=== PATIENT | female | born 1990 | race Caucasian/White ===

== ENCOUNTER 2016-04-25 10:55 | Emergency (ER) | payer OTHER ==
[2016-04-25] MEDS ORDERED: ACETAMINOPHEN 325 MG TAB As Ordered ONE (11:16)
[2016-04-25 11:41] LABS: BASO % 0.3 % (0.0-1.0); EOS % 0.2 % (0.0-3.0); LARGE UNSTAINED CELL # 0.1 K/mm3 (0.0-0.4); LARGE UNSTAINED CELL % 1.8 % (0.0-4.0); LYMPH # 0.2 K/mm3 (1.5-6.5); LYMPH % 5.4 % (24.0-44.0); MEAN CORPUSCULAR HEMOGLOBIN 30.3 pg (27.0-33.0); MEAN CORPUSCULAR HGB CONC 34.5 g/dl (32.0-36.5); MEAN CORPUSCULAR VOLUME 87.9 fl (80.0-96.0); MONO # 0.3 K/mm3 (0.0-0.8); MONO % 6.5 % (0.0-5.0); NEUTROPHILS # 3.8 K/mm3 (1.8-7.7); NEUTROPHILS % 85.7 % (36.0-66.0); PLATELET COUNT, AUTOMATED 244 k/mm3 (150-450); RED CELL DISTRIBUTION WIDTH 12.4 % (11.5-14.5); WHITE BLOOD COUNT 4.4 K/mm3 (4.0-10.0)
[2016-04-25 11:54] LABS: ANION GAP 9 MEQ/L (8-16); BLOOD UREA NITROGEN 12 MG/DL (7-18); CALCIUM LEVEL 9.3 MG/DL (8.5-10.1); CARBON DIOXIDE LEVEL 27 MEQ/L (21-32); CHLORIDE LEVEL 102 MEQ/L (98-107); CREATININE FOR GFR 0.94 MG/DL (0.55-1.02); GLOMERULAR FILTRATION RATE > 60.0 (>60); GLUCOSE, FASTING 93 MG/DL (70-105); SODIUM LEVEL 138 MEQ/L (136-145)
[2016-04-25] MEDS ORDERED: ISOVUE-370 76% 100ML VIAL (Q9967) As Ordered ONE (12:14)
--- NOTE | 2016-04-25 13:27 | EDDOCDS ---
Physician Documentation [facility] Name: Elisha Saucedo Age: 25 yrs Sex: Female : 1990 Arrival Date: 04/25/2016 Time: 10:55 Bed I2 / M2 Private MD: NO PRIMARY PHYSICIAN, . Disposition: 04/25/16 13:05 Discharged to Home/Self Care. Impression: Chest pain, unspecified, Viral infection, unspecified. - Condition is Stable. - Discharge Instructions: Nonspecific Chest Pain, Viral Infections. - Medication Reconciliation, Work Release Form - 3 day form. - Follow up: Rhea Perdomo MD; When: Call to arrange an appointment; Reason: Wound/Symptom Recheck, Recheck today's complaints, Worsening of conditions, Continuance of care, To establish care. - Problem is new. - Symptoms are unchanged. Historical: - Allergies: amoxicillin; Ceclor; Erythromycin; - Home Meds: 1. BCP 1 tab once daily - PMHx: none; - PSHx: none; - Social history: Smoking status: Patient states was never smoker of tobacco. No barriers to communication noted, The patient speaks fluent Italian, Speaks appropriately for age. - : The pt / caregiver states he / she is not on anticoagulants. Home medication list is obtained from the patient. - Exposure Risk Screening:: None identified. 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 5 in. (165.10 cm); Pain 3/10; 12:32 BP 121 / 60; Pulse 92; Resp 18; Temp 100.3(O); Pulse Ox 97% on R/A; Pain 0/10; jml1 13:15 BP 118 / 55; Pulse 80; Resp 20; Temp 98; Pain 1/10; mk4 10:57 Body Mass Index 24.96 (68.04 kg, 165.10 cm) dem1 MDM: 11:12 UCG by Nursing ordered. cc10 11:12 Acetaminophen Tablet 650 mg PO once ordered. cc10 11:12 Basic Metabolic Profile Ordered. EDMS 11:12 CBC with Diff Ordered. EDMS 11:12 D-Dimer Quant Ordered. EDMS 11:14 Chest, 2 View (pa\E\lat) Ordered. EDMS 11:27 Financial registration complete. gb 11:56 CBC with Diff Reviewed. cc10 11:56 D-Dimer Quant Reviewed. cc10 11:56 Basic Metabolic Profile Reviewed. cc10 12:09 IV Saline Lock ordered. cc10 12:09 Vital Signs ordered. cc10 12:09 CT Chest Angio R/O PE Ordered. EDMS 12:17 [facility] Payment Agreement was scanned into [employer] and attached to record. Point of Care Testing: Urine : 11:25 hCG Reading: Negative; Control Reading: Positive; rs3 Ranges: Administered Medications: 11:24 Drug: Acetaminophen 650 mg [acetaminophen 325 mg tablet (2 tabs)] Route: PO; rs3 Signatures: Dispatcher [employer] EDCA Katie Martinez, Reg Reg Maynor Eckert RN RN mlb1 Dolores Valdez RN RN mk4 Salinas Dorman, PA-C PA-C cc10 Milla Hahn RN rs3 The chart was reviewed and I authenticate all verbal orders and agree with the evaluation and treatment provided.Attachments: 12:17 [facility] Payment Agreement gb MTDD
--- NOTE | 2016-04-25 13:27 | EDDOCDS ---
Nurse's Notes [facility] Name: Elisha Saucedo Age: 25 yrs Sex: Female : 1990 Arrival Date: 04/25/2016 Time: 10:55 Bed I2 / M2 Private MD: NO PRIMARY PHYSICIAN, . Diagnosis: Chest pain, unspecified;Viral infection, unspecified Presentation: 04/25 10:58 Presenting complaint: Patient states: Chest pressure radiating to back intermittent mlb1 since 1900 last night seen at [facility] this am. Aspirin was not taken prior to arrival. Adult Sepsis Screening: The patient does not have new or worsening altered mentation. Patient's respiratory rate is less than 22. Systolic blood pressure is greater than 100. Patient has a qSOFA score of 0- Negative Sepsis Screen. Suicide/Homicide risk assessment- the patient denies having any suicidal and/or homicidal ideations and does not present with any other emotional, behavioral or mental health complaints. Status: Patient is not a donor services technician or dependent. Transition of care: Patient was received from [facility]. 10:58 Acuity: JIMMY Level 3 mlb1 10:58 Method Of Arrival: Walkin/Carried/Asstd mlb1 Triage Assessment: 11:01 General: Appears in no apparent distress, Behavior is appropriate for age, cooperative. mlb1 Pain: Location: chest Pain currently is 3 out of 10 on a pain scale. Pain radiates to thoracic area. HIV screening NA for this visit Offered previously. 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 BCP 1 tab once daily - PMHx: none; - PSHx: none; - Social history: Smoking status: Patient states was never smoker of tobacco. No barriers to communication noted, The patient speaks fluent Martiniquais, Speaks appropriately for age. - : The pt / caregiver states he / she is not on anticoagulants. Home medication list is obtained from the patient. - Exposure Risk Screening:: None identified. Screenin:22 Screening information is obtained from the patient. Fall risk: No risks identified. ck1 Assistance ADL's: requires no assistance with activities of daily living. Abuse/DV Screen: The patient / caregiver reports he/she is: not in a situation that causes fear, pain or injury. Nutritional screening: No deficits noted. Advance Directives: Currently, there is no health care proxy. home support is adequate. Assessment: 11:21 General: Appears in no apparent distress, comfortable, Behavior is appropriate for age, ck1 cooperative. Pain: Location: chest Pain currently is 4 out of 10 on a pain scale. Quality of pain is described as pressure. Neurological: Level of Consciousness is awake, alert, obeys commands, Oriented to person, place, time. Cardiovascular: Rhythm is regular. Respiratory: Respiratory effort is unlabored, Respiratory pattern is regular, symmetrical. Derm: Skin is intact, is healthy with good turgor, Skin is pink, warm & dry. 12:20 General: Appears in no apparent distress. Neurological: Level of Consciousness is mk4 awake, alert, Oriented to person, place, time. Respiratory: Airway is patent Respiratory effort is even. 13:19 Reassessment: Patient denies pain at this time. General: Appears in no apparent mk4 distress, comfortable, Behavior is cooperative. Vital Signs: 10:57 BP 147 / 61; Pulse 107; Resp 18; Temp 99.7; Pulse Ox 99% on R/A; Weight 68.04 kg; dem1 Height 5 ft. 5 in. (165.10 cm); Pain 3/10; 12:32 BP 121 / 60; Pulse 92; Resp 18; Temp 100.3(O); Pulse Ox 97% on R/A; Pain 0/10; jml1 13:15 BP 118 / 55; Pulse 80; Resp 20; Temp 98; Pain 1/10; mk4 10:57 Body Mass Index 24.96 (68.04 kg, 165.10 cm) [facility] Vitals: 10:57 Log In Time: April 25, 2016 at 10:55. [facility] ED Course: 10:56 Patient visited by Charlie Orellana. dem1 10:56 Patient moved to Waiting dem1 10:57 NO PRIMARY PHYSICIAN, . is Private Physician. [facility] 10:58 Patient visited by Maynor Eckert, TASNEEM. b1 10:58 Patient moved to Pre RCE dem1 11:00 Triage Initiated mlb1 11:01 Patient visited by Maynor Eckert, TASNEEM. mlb1 11:01 Patient moved to Triage 2 mlb1 11:04 Salinas Dorman PA-C is PHCP. cc10 11:04 Rupa Quinones MD is Attending Physician. cc10 11:04 Patient visited by Salinas Dorman PA-C. cc10 11:04 Patient visited by Salinas Dorman PA-C. cc10 11:21 Basic Metabolic Profile Sent. ck1 11:21 CBC with Diff Sent. ck1 11:21 D-Dimer Quant Sent. ck1 11:22 Patient moved to TR1 rs3 11:22 The patient / caregiver is instructed regarding the plan of care and ED course. Cardiac ck1 monitoring not applicable on this patient. 11:35 Patient visited by Rachael Rodriguez RN. ck1 12:03 Patient moved to I2 / M2 ck1 12:17 Patient name changed from Elisha\S\\S\Lewis\S\ to Elisha\S\Jyoti\S\Lewis. EDMS 12:17 [facility] Payment Agreement was scanned into [employer] and attached to record. gb 12:18 Patient visited by Dolores Valdez RN. mk4 12:19 Inserted saline lock: 20 gauge in left antecubital area The patient tolerated the dls procedure well. 12:32 Patient visited by Bob Bertrand. jml1 13:04 Rhea Perdomo MD is Referral Physician. cc10 13:15 No procedures done that require assistance. mk4 Administered Medications: 11:24 Drug: Acetaminophen 650 mg [acetaminophen 325 mg tablet (2 tabs)] Route: PO; rs3 Point of Care Testing: Urine : 11:25 hCG Reading: Negative; Control Reading: Positive; rs3 Ranges: Order Results: Lab Order: Basic Metabolic Profile; SPEC'M 04/25/16 11:20 Test: GLUCOSE, FASTING; Value: 93; Range: 70-105; Units: MG/DL; Status: F Test: BLOOD UREA NITROGEN; Value: 12; Range: 7-18; Units: MG/DL; Status: F Test: CREATININE FOR GFR; Value: 0.94; Range: 0.55-1.02; Units: MG/DL; Status: F Test: GLOMERULAR FILTRATION RATE; Value: > 60.0; Range: >60; Status: F Test: SODIUM LEVEL; Value: 138; Range: 136-145; Units: MEQ/L; Status: F Test: POTASSIUM SERUM; Value: 4.0; Range: 3.5-5.1; Units: MEQ/L; Status: F Test: CHLORIDE LEVEL; Value: 102; Range: 98-107; Units: MEQ/L; Status: F Test: CARBON DIOXIDE LEVEL; Value: 27; Range: 21-32; Units: MEQ/L; Status: F Test: ANION GAP; Value: 9; Range: 8-16; Units: MEQ/L; Status: F Test: CALCIUM LEVEL; Value: 9.3; Range: 8.5-10.1; Units: MG/DL; Status: F Test Note: ; Units are mL/min/1.73 m2 Chronic Kidney Disease Staging per NKF: Stage I & II GFR >=60 Normal to Mildly Decreased Stage III GFR 30-59 Moderately Decreased Stage IV GFR 15-29 Severely Decreased Stage V GFR <15 Very Little GFR Left ESRD 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0-36.5; Units: g/dl; Status: F Test: RED CELL DISTRIBUTION WIDTH; Value: 12.4; Range: 11.5-14.5; Units: %; Status: F Test: PLATELET COUNT, AUTOMATED; Value: 244; Range: 150-450; Units: k/mm3; Status: F Test: NEUTROPHILS %; Value: 85.7; Range: 36.0-66.0; Abnormal: Above high normal; Units: %; Status: F Test: LYMPH %; Value: 5.4; Range: 24.0-44.0; Abnormal: Below low normal; Units: %; Status: F Test: MONO %; Value: 6.5; Range: 0.0-5.0; Abnormal: Above high normal; Units: %; Status: F Test: EOS %; Value: 0.2; Range: 0.0-3.0; Units: %; Status: F Test: BASO %; Value: 0.3; Range: 0.0-1.0; Units: %; Status: F Test: LARGE UNSTAINED CELL %; Value: 1.8; Range: 0.0-4.0; Units: %; Status: F Test: NEUTROPHILS #; Value: 3.8; Range: 1.8-7.7; Units: K/mm3; Status: F Test: LYMPH #; Value: 0.2; Range: 1.5-6.5; Abnormal: Below low normal; Units: K/mm3; Status: F Test: MONO #; Value: 0.3; Range: 0.0-0.8; Units: K/mm3; Status: F Test: EOS #; Value: 0.0; Range: 0.0-0.50; Units: K/mm3; Status: F Test: BASO #; Value: 0.0; Range: 0.0-0.2; Units: K/mm3; Status: F Test: LARGE UNSTAINED CELL #; Value: 0.1; Range: 0.0-0.4; Units: K/mm3; Status: F Lab Order: D-Dimer Quant; SPEC'M 04/25/16 11:20 Test: D-DIMER QUANT; Value: 526.5; Range: <500; Abnormal: Above high normal; Units: ng/ml; Status: F Outcome: 13:05 Discharge ordered by Provider. cc10 13:27 Patient left the ED. mk4 Signatures: Dispatcher [employer] EDKati Todd RN RN Katie Mora, Jorje Reg Maynor Hooks, RN RN mlb1 Rachael Rodriguez RN RN ck1 Milla HahnRN RN rs3 Bob Bertrandl1 Charlie Orellana Margaret RN RN mk4 Salinas Dorman, DAYANARA NICHOLE cc10 MTDD
--- NOTE | 2016-04-25 13:53 | REP ---
Chest PA and lateral: 04/25/2016. Clinical history: Cough. Findings. Lungs are well inflated. There are patchy bibasilar areas of atelectasis or early infiltrate without air bronchograms. There is no effusion. The heart, mediastinal and hilar contours are normal. Bones unremarkable. No free air under the diaphragm. Impression: 1. Patchy bibasilar atelectasis or infiltrates without air bronchograms. No effusion. Signed by Tru Canas MD 04/25/2016 07:37 P
--- NOTE | 2016-04-25 14:06 | REP ---
CT ANGIOGRAM CHEST: 04/25/2016. Clinical history: 25-year-old female with chest pain. Comparison: Chest x-ray today. Technique: Patient received a bolus of 100 mL as Isovue 370 scanning through the chest with coronal and sagittal MIP thick slab reformats. Findings: The lung treviño are clear. There is no infiltrate, effusion, nodule, atelectasis or mass. No pleural thickening, pleural plaques, apical scarring or pneumothorax. No pneumomediastinum. Heart not grossly enlarged. There is no aortic aneurysm or dissection. The main, right and left pulmonary arteries and the mediastinum are without filling defects. The lobar, segmental and subsegmental vessels identified were all unremarkable and without filling defect or vessel cutoff. No pathologic sized mediastinal or hilar adenopathy. No axillary or supraclavicular mass. The bone windows show the sternum, manubrium, clavicles, AC joints, glenohumeral joints, scapulae, ribs and thoracic spine without focal lesion or fracture. In the upper abdomen that portion of liver and spleen seen were normal for arterial phase imaging. No ascites. Adrenal glands normal. Upper poles of the kidneys intact. No hiatal hernia. Tail of the pancreas seen and unremarkable. Impression: 1. Normal CT angiogram of the chest. No evidence of pulmonary embolism, mediastinal or hilar adenopathy, pneumothorax, pneumomediastinum, fracture or focal bone lesion in the chest nor any other findings. The lungs were clear. No aortic aneurysm or dissection. No hiatal hernia. Signed by Tru Canas MD 04/25/2016 07:39 P
--- NOTE | 2016-04-27 14:28 | EDDOCDS ---
Physician Documentation [facility] Name: Elisha Saucedo Age: 25 yrs Sex: Female : 1990 Arrival Date: 04/25/2016 Time: 10:55 Bed I2 / M2 Private MD: NO PRIMARY PHYSICIAN, . Disposition: 04/25/16 13:05 Discharged to Home/Self Care. Impression: Chest pain, unspecified, Viral infection, unspecified. - Condition is Stable. - Discharge Instructions: Nonspecific Chest Pain, Viral Infections. - Medication Reconciliation, Work Release Form - 3 day form. - Follow up: Rhea Perdomo MD; When: Call to arrange an appointment; Reason: Wound/Symptom Recheck, Recheck today's complaints, Worsening of conditions, Continuance of care, To establish care. - Problem is new. - Symptoms are unchanged. Historical: - Allergies: amoxicillin; Ceclor; Erythromycin; - Home Meds: 1. BCP 1 tab once daily - PMHx: none; - PSHx: none; - Social history: Smoking status: Patient states was never smoker of tobacco. No barriers to communication noted, The patient speaks fluent Polish, Speaks appropriately for age. - : The pt / caregiver states he / she is not on anticoagulants. Home medication list is obtained from the patient. - Exposure Risk Screening:: None identified. 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 5 in. (165.10 cm); Pain 3/10; 12:32 BP 121 / 60; Pulse 92; Resp 18; Temp 100.3(O); Pulse Ox 97% on R/A; Pain 0/10; jml1 13:15 BP 118 / 55; Pulse 80; Resp 20; Temp 98; Pain 1/10; mk4 10:57 Body Mass Index 24.96 (68.04 kg, 165.10 cm) dem1 MDM: 11:12 UCG by Nursing ordered. cc10 11:12 Acetaminophen Tablet 650 mg PO once ordered. cc10 11:12 Basic Metabolic Profile Ordered. EDMS 11:12 CBC with Diff Ordered. EDMS 11:12 D-Dimer Quant Ordered. EDMS 11:14 Chest, 2 View (pa\E\lat) Ordered. EDMS 11:27 Financial registration complete. gb 11:56 CBC with Diff Reviewed. cc10 11:56 D-Dimer Quant Reviewed. cc10 11:56 Basic Metabolic Profile Reviewed. cc10 12:09 IV Saline Lock ordered. cc10 12:09 Vital Signs ordered. cc10 12:09 CT Chest Angio R/O PE Ordered. EDMS 12:17 [facility] Payment Agreement was scanned into [employer] and attached to record. gb 17:15 T-Sheet-- Draft Copy was scanned into [employer] and attached to record. klr Point of Care Testing: Urine : 11:25 hCG Reading: Negative; Control Reading: Positive; rs3 Ranges: Administered Medications: 11:24 Drug: Acetaminophen 650 mg [acetaminophen 325 mg tablet (2 tabs)] Route: PO; rs3 Signatures: Dispatcher [employer] EDPA Katie aMrtinez, Reg Reg Maynor Eckert RN RN mlb1 Dolores Valdez RN RN mk4 Salinas Dorman, PA-C PA-C cc10 Shannan Camacho klr Milla Hahn RN rs3 The chart was reviewed and I authenticate all verbal orders and agree with the evaluation and treatment provided.Attachments: 12:17 [facility] Payment Agreement gb 17:15 T-Sheet-- Draft Copy klr Chart Complete MTDD
--- NOTE | 2016-04-27 14:28 | EDDOCDS ---
Physician Documentation [facility] Name: Elisha Saucedo Age: 25 yrs Sex: Female : 1990 Arrival Date: 04/25/2016 Time: 10:55 Bed I2 / M2 Private MD: NO PRIMARY PHYSICIAN, . Disposition: 04/25/16 13:05 Discharged to Home/Self Care. Impression: Chest pain, unspecified, Viral infection, unspecified. - Condition is Stable. - Discharge Instructions: Nonspecific Chest Pain, Viral Infections. - Medication Reconciliation, Work Release Form - 3 day form. - Follow up: Rhea Perdomo MD; When: Call to arrange an appointment; Reason: Wound/Symptom Recheck, Recheck today's complaints, Worsening of conditions, Continuance of care, To establish care. - Problem is new. - Symptoms are unchanged. Historical: - Allergies: amoxicillin; Ceclor; Erythromycin; - Home Meds: 1. BCP 1 tab once daily - PMHx: none; - PSHx: none; - Social history: Smoking status: Patient states was never smoker of tobacco. No barriers to communication noted, The patient speaks fluent Ukrainian, Speaks appropriately for age. - : The pt / caregiver states he / she is not on anticoagulants. Home medication list is obtained from the patient. - Exposure Risk Screening:: None identified. 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 5 in. (165.10 cm); Pain 3/10; 12:32 BP 121 / 60; Pulse 92; Resp 18; Temp 100.3(O); Pulse Ox 97% on R/A; Pain 0/10; jml1 13:15 BP 118 / 55; Pulse 80; Resp 20; Temp 98; Pain 1/10; mk4 10:57 Body Mass Index 24.96 (68.04 kg, 165.10 cm) dem1 MDM: 11:12 UCG by Nursing ordered. cc10 11:12 Acetaminophen Tablet 650 mg PO once ordered. cc10 11:12 Basic Metabolic Profile Ordered. EDMS 11:12 CBC with Diff Ordered. EDMS 11:12 D-Dimer Quant Ordered. EDMS 11:14 Chest, 2 View (pa\E\lat) Ordered. EDMS 11:27 Financial registration complete. gb 11:56 CBC with Diff Reviewed. cc10 11:56 D-Dimer Quant Reviewed. cc10 11:56 Basic Metabolic Profile Reviewed. cc10 12:09 IV Saline Lock ordered. cc10 12:09 Vital Signs ordered. cc10 12:09 CT Chest Angio R/O PE Ordered. EDMS 12:17 [facility] Payment Agreement was scanned into [employer] and attached to record. gb 17:15 T-Sheet-- Draft Copy was scanned into [employer] and attached to record. klr Point of Care Testing: Urine : 11:25 hCG Reading: Negative; Control Reading: Positive; rs3 Ranges: Administered Medications: 11:24 Drug: Acetaminophen 650 mg [acetaminophen 325 mg tablet (2 tabs)] Route: PO; rs3 Signatures: Dispatcher [employer] EDFL Katie Martinez, Reg Reg Maynor Eckert RN RN mlb1 Dolores Valdez RN RN mk4 Salinas Dorman, PA-C PA-C cc10 Shannan Camacho klr Milla Hahn RN rs3 The chart was reviewed and I authenticate all verbal orders and agree with the evaluation and treatment provided.Attachments: 12:17 [facility] Payment Agreement gb 17:15 T-Sheet-- Draft Copy klr Chart Complete MTDD
--- NOTE | 2016-04-27 14:28 | EDDOCDS ---
Nurse's Notes [facility] Name: Elisha Saucedo Age: 25 yrs Sex: Female : 1990 Arrival Date: 04/25/2016 Time: 10:55 Bed I2 / M2 Private MD: NO PRIMARY PHYSICIAN, . Diagnosis: Chest pain, unspecified;Viral infection, unspecified Presentation: 04/25 10:58 Presenting complaint: Patient states: Chest pressure radiating to back intermittent mlb1 since 1900 last night seen at [facility] this am. Aspirin was not taken prior to arrival. Adult Sepsis Screening: The patient does not have new or worsening altered mentation. Patient's respiratory rate is less than 22. Systolic blood pressure is greater than 100. Patient has a qSOFA score of 0- Negative Sepsis Screen. Suicide/Homicide risk assessment- the patient denies having any suicidal and/or homicidal ideations and does not present with any other emotional, behavioral or mental health complaints. Status: Patient is not a electric serviceman or dependent. Transition of care: Patient was received from [facility]. 10:58 Acuity: JIMMY Level 3 mlb1 10:58 Method Of Arrival: Walkin/Carried/Asstd mlb1 Triage Assessment: 11:01 General: Appears in no apparent distress, Behavior is appropriate for age, cooperative. mlb1 Pain: Location: chest Pain currently is 3 out of 10 on a pain scale. Pain radiates to thoracic area. HIV screening NA for this visit Offered previously. 13:00 Cardiovascular: Chest pain is described as radiates Does not radiate. episodes are mk4 intermittent began 2 hours prior to arrival. 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 BCP 1 tab once daily - PMHx: none; - PSHx: none; - Social history: Smoking status: Patient states was never smoker of tobacco. No barriers to communication noted, The patient speaks fluent Thai, Speaks appropriately for age. - : The pt / caregiver states he / she is not on anticoagulants. Home medication list is obtained from the patient. - Exposure Risk Screening:: None identified. Screenin:22 Screening information is obtained from the patient. Fall risk: No risks identified. ck1 Assistance ADL's: requires no assistance with activities of daily living. Abuse/DV Screen: The patient / caregiver reports he/she is: not in a situation that causes fear, pain or injury. Nutritional screening: No deficits noted. Advance Directives: Currently, there is no health care proxy. home support is adequate. Assessment: 11:21 General: Appears in no apparent distress, comfortable, Behavior is appropriate for age, ck1 cooperative. Pain: Location: chest Pain currently is 4 out of 10 on a pain scale. Quality of pain is described as pressure. Neurological: Level of Consciousness is awake, alert, obeys commands, Oriented to person, place, time. Cardiovascular: Rhythm is regular. Respiratory: Respiratory effort is unlabored, Respiratory pattern is regular, symmetrical. Derm: Skin is intact, is healthy with good turgor, Skin is pink, warm & dry. 12:20 General: Appears in no apparent distress. Neurological: Level of Consciousness is mk4 awake, alert, Oriented to person, place, time. Respiratory: Airway is patent Respiratory effort is even. 13:19 Reassessment: Patient denies pain at this time. General: Appears in no apparent mk4 distress, comfortable, Behavior is cooperative. Vital Signs: 10:57 BP 147 / 61; Pulse 107; Resp 18; Temp 99.7; Pulse Ox 99% on R/A; Weight 68.04 kg; dem1 Height 5 ft. 5 in. (165.10 cm); Pain 3/10; 12:32 BP 121 / 60; Pulse 92; Resp 18; Temp 100.3(O); Pulse Ox 97% on R/A; Pain 0/10; jml1 13:15 BP 118 / 55; Pulse 80; Resp 20; Temp 98; Pain 1/10; mk4 10:57 Body Mass Index 24.96 (68.04 kg, 165.10 cm) [facility] Vitals: 10:57 Log In Time: April 25, 2016 at 10:55. [facility] ED Course: 10:56 Patient visited by Charlie Orellana. [facility] 10:56 Patient moved to Waiting [facility] 10:57 NO PRIMARY PHYSICIAN, . is Private Physician. [facility] 10:58 Patient visited by Maynor Eckert, TASNEEM. [facility] 10:58 Patient moved to Pre RCE [facility] 11:00 Triage Initiated b1 11:01 Patient visited by Maynor Eckert, TASNEEM. mlb1 11:01 Patient moved to Triage 2 mlb1 11:04 Salinas Dorman PA-C is PHCP. cc10 11:04 Rupa Quinones MD is Attending Physician. cc10 11:04 Patient visited by Salinas Dorman PA-C. cc10 11:04 Patient visited by Salinas Dorman PA-C. cc10 11:21 Basic Metabolic Profile Sent. ck1 11:21 CBC with Diff Sent. ck1 11:21 D-Dimer Quant Sent. ck1 11:22 Patient moved to TR1 rs3 11:22 The patient / caregiver is instructed regarding the plan of care and ED course. Cardiac ck1 monitoring not applicable on this patient. 11:35 Patient visited by Rachael Rodriguez RN. ck1 12:03 Patient moved to I2 / M2 ck1 12:17 Patient name changed from Elisha\S\\S\Lewis\S\ to Elisha\S\Jyoti\S\Lewis. EDMS 12:17 [place] [place] Agreement was scanned into [employer] and attached to record. gb 12:18 Patient visited by Dolores Valdez RN. mk4 12:19 Inserted saline lock: 20 gauge in left antecubital area The patient tolerated the dls procedure well. 12:32 Patient visited by Bob Bertrand. jml1 13:04 Rhea Perdomo MD is Referral Physician. cc10 13:15 No procedures done that require assistance. mk4 14:15 Chest, 2 View (pa\E\lat) Returned. EDMS 14:15 CT Chest Angio R/O PE Returned. EDMS 17:15 T-Sheet-- Draft Copy was scanned into [employer] and attached to record. klr Administered Medications: 11:24 Drug: Acetaminophen 650 mg [acetaminophen 325 mg tablet (2 tabs)] Route: PO; rs3 Point of Care Testing: Urine : 11:25 hCG Reading: Negative; Control Reading: Positive; rs3 Ranges: Order Results: Lab Order: Basic Metabolic Profile; SPEC'M 04/25/16 11:20 Test: GLUCOSE, FASTING; Value: 93; Range: 70-105; Units: MG/DL; Status: F Test: BLOOD UREA NITROGEN; Value: 12; Range: 7-18; Units: MG/DL; Status: F Test: CREATININE FOR GFR; Value: 0.94; Range: 0.55-1.02; Units: MG/DL; Status: F Test: GLOMERULAR FILTRATION RATE; Value: > 60.0; Range: >60; Status: F Test: SODIUM LEVEL; Value: 138; Range: 136-145; Units: MEQ/L; Status: F Test: POTASSIUM SERUM; Value: 4.0; Range: 3.5-5.1; Units: MEQ/L; Status: F Test: CHLORIDE LEVEL; Value: 102; Range: 98-107; Units: MEQ/L; Status: F Test: CARBON DIOXIDE LEVEL; Value: 27; Range: 21-32; Units: MEQ/L; Status: F Test: ANION GAP; Value: 9; Range: 8-16; Units: MEQ/L; Status: F Test: CALCIUM LEVEL; Value: 9.3; Range: 8.5-10.1; Units: MG/DL; Status: F Test Note: ; Units are mL/min/1.73 m2 Chronic Kidney Disease Staging per NKF: Stage I & II GFR >=60 Normal to Mildly Decreased Stage III GFR 30-59 Moderately Decreased Stage IV GFR 15-29 Severely Decreased Stage V GFR <15 Very Little GFR Left ESRD GFR <15 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 Lab Order: CBC with Diff; SPEC'M 04/25/16 11:20 Test: WHITE BLOOD COUNT; Value: 4.4; Range: 4.0-10.0; Units: K/mm3; Status: F Test: RED BLOOD COUNT; Value: 4.49; Range: 4.00-5.40; Units: M/mm3; Status: F Test: HEMOGLOBIN; Value: 13.6; Range: 12.0-16.0; Units: g/dl; Status: F Test: HEMATOCRIT; Value: 39.5; Range: 36.0-47.0; Units: %; Status: F Test: MEAN CORPUSCULAR VOLUME; Value: 87.9; Range: 80.0-96.0; Units: fl; Status: F Test: MEAN CORPUSCULAR HEMOGLOBIN; Value: 30.3; Range: 27.0-33.0; Units: pg; Status: F Test: MEAN CORPUSCULAR HGB CONC; Value: 34.5; Range: 32.0-36.5; Units: g/dl; Status: F Test: RED CELL DISTRIBUTION WIDTH; Value: 12.4; Range: 11.5-14.5; Units: %; Status: F Test: PLATELET COUNT, AUTOMATED; Value: 244; Range: 150-450; Units: k/mm3; Status: F Test: NEUTROPHILS %; Value: 85.7; Range: 36.0-66.0; Abnormal: Above high normal; Units: %; Status: F Test: LYMPH %; Value: 5.4; Range: 24.0-44.0; Abnormal: Below low normal; Units: %; Status: F Test: MONO %; Value: 6.5; Range: 0.0-5.0; Abnormal: Above high normal; Units: %; Status: F Test: EOS %; Value: 0.2; Range: 0.0-3.0; Units: %; Status: F Test: BASO %; Value: 0.3; Range: 0.0-1.0; Units: %; Status: F Test: LARGE UNSTAINED CELL %; Value: 1.8; Range: 0.0-4.0; Units: %; Status: F Test: NEUTROPHILS #; Value: 3.8; Range: 1.8-7.7; Units: K/mm3; Status: F Test: LYMPH #; Value: 0.2; Range: 1.5-6.5; Abnormal: Below low normal; Units: K/mm3; Status: F Test: MONO #; Value: 0.3; Range: 0.0-0.8; Units: K/mm3; Status: F Test: EOS #; Value: 0.0; Range: 0.0-0.50; Units: K/mm3; Status: F Test: BASO #; Value: 0.0; Range: 0.0-0.2; Units: K/mm3; Status: F Test: LARGE UNSTAINED CELL #; Value: 0.1; Range: 0.0-0.4; Units: K/mm3; Status: F Lab Order: D-Dimer Quant; SPEC'M 04/25/16 11:20 Test: D-DIMER QUANT; Value: 526.5; Range: <500; Abnormal: Above high normal; Units: ng/ml; Status: F Radiology Order: Chest, 2 View (pa\E\lat) Test: Chest, 2 View (pa\E\lat) REASON FOR EXAMINATION: Cough; Chest PA and lateral: 04/25/2016.; ; Clinical history: Cough.; ; Findings. Lungs are well inflated. There are patchy bibasilar areas of; atelectasis or early infiltrate without air bronchograms. There is no effusion.; The heart, mediastinal and hilar contours are normal. Bones unremarkable. No; free air under the diaphragm.; ; Impression:; ; 1. Patchy bibasilar atelectasis or infiltrates without air bronchograms. No; effusion.; ; ; Signed by; Tru Canas MD 04/25/2016 07:37 P; Radiology Order: CT Chest Angio R/O PE Test: CT Chest Angio R/O PE REASON FOR EXAMINATION: Chest Pain; CT ANGIOGRAM CHEST: 04/25/2016.; ; Clinical history: 25-year-old female with chest pain.; ; Comparison: Chest x-ray today.; ; Technique: Patient received a bolus of 100 mL as Isovue 370 scanning through; the chest with coronal and sagittal MIP thick slab reformats.; ; Findings: The lung treviño are clear. There is no infiltrate, effusion, nodule,; atelectasis or mass. No pleural thickening, pleural plaques, apical scarring or; pneumothorax. No pneumomediastinum. Heart not grossly enlarged. There is no; aortic aneurysm or dissection. The main, right and left pulmonary arteries and; the mediastinum are without filling defects. The lobar, segmental and; subsegmental vessels identified were all unremarkable and without filling defect; or vessel cutoff. No pathologic sized mediastinal or hilar adenopathy. No; axillary or supraclavicular mass. The bone windows show the sternum, manubrium,; clavicles, AC joints, glenohumeral joints, scapulae, ribs and thoracic spine; without focal lesion or fracture. In the upper abdomen that portion of liver and; spleen seen were normal for arterial phase imaging. No ascites. Adrenal glands; normal. Upper poles of the kidneys intact. No hiatal hernia. Tail of the; pancreas seen and unremarkable.; ; Impression:; ; 1. Normal CT angiogram of the chest. No evidence of pulmonary embolism,; mediastinal or hilar adenopathy, pneumothorax, pneumomediastinum, fracture or; focal bone lesion in the chest nor any other findings. The lungs were clear. No; aortic aneurysm or dissection. No hiatal hernia.; ; ; Signed by; Tru Canas MD 04/25/2016 07:39 P; Outcome: 13:05 Discharge ordered by Provider. cc10 13:27 Patient left the ED. mk4 13:27 Discharge Assessment: Patient awake, alert and oriented x 3. No cognitive and/or mk4 functional deficits noted. Patient verbalized understanding of disposition instructions. Patient awake and alert. patient administered narcotics - no. The following High Risk Discharge criteria are identified: None. Discharged to home ambulatory. Condition: good. No special radiology studies were completed. Property sent home with patient. Signatures: Dispatcher [employer] EDMS Kati Ramsay, RN RN dls Katie aMrtinez, Reg Reg gb Maynor Eckert RN RN mlb1 Rachael RodriguezRN RN ck1 Milla HahnRN RN rs3 Bob Bertrand jml1 Charlie Orellana dem1 Dolores Valdez RN RN mk4 Salinas Dorman, PA-C PA-C cc10 Shannan Camacho Chart Complete MTDD
== END 2016-04-25 13:27 | disposition home or self-care (01) ==
LOC: M ED 10:55
DX: R07.89 Other chest pain (principal); B34.9 Viral infection, unspecified; Z79.3 Long term (current) use of hormonal contraceptives; Z88.0 Allergy status to penicillin
CPT/HCPCS: 36415; 71020; 71275; 80048; 81025; 85025; 85379; 99284; Q9967

== ENCOUNTER → 2016-08-04 | Outpatient (REF) | payer OTHER | LOC: M SFHCWAGY 14:03 | PROVIDERS: ATTEND Nurse Practitioner Women's Health | DX: Z12.4 Encounter for screening for malignant neoplasm of cervix (principal) ==

== ENCOUNTER → 2017-11-01 | Outpatient (REF) | payer OTHER ==
[2017-11-01 19:46] LABS: VITAMIN B12 LEVEL 611 PG/ML (247-911)
== END ==
LOC: M LAB REF 18:42
DX: Z86.2 Personal history of diseases of the blood and blood-forming organs and certain disorders involving the immune mechanism (principal); Z71.3 Dietary counseling and surveillance (principal)
CPT/HCPCS: 82607

== ENCOUNTER → 2017-12-17 | Outpatient (REF) | payer OTHER | LOC: M SFHCWAGY 16:00 | DX: Z12.4 Encounter for screening for malignant neoplasm of cervix (principal) ==

== ENCOUNTER → 2018-12-30 | Outpatient (REF) | payer OTHER | LOC: M SFHCLERA 15:41 | PROVIDERS: ATTEND Nurse Practitioner Family | DX: J02.9 Acute pharyngitis, unspecified (principal) ==

== ENCOUNTER → 2019-02-01 | Outpatient (REF) | payer OTHER | LOC: M SFHCLERA 10:41 | PROVIDERS: ATTEND Physician Assistant | DX: J02.9 Acute pharyngitis, unspecified (principal) ==

== ENCOUNTER → 2020-07-24 | Outpatient (REF) | payer OTHER | LOC: M SFHCWAGY 10:32 | PROVIDERS: ATTEND Nurse Practitioner Women's Health | DX: Z12.4 Encounter for screening for malignant neoplasm of cervix (principal) | CPT/HCPCS: 87624; G0123 ==